=== PATIENT | female | born 1990 | race Asian ===

== ENCOUNTER 2024-08-05 21:07 | Emergency (ER) | payer OTHER ==
[2024-08-05 22:39] LABS: #Basophils Less than 0.03 10x3/uL (0.0-0.2); #Eosinophils Less than 0.03 10x3/uL (0.0-0.5); #Monocytes 0.32 10x3/uL (0.0-1.1); #Neutrophils 8.39 10x3/uL (1.5-8.4); %Lymphocytes 14.4 % (18.0-47.0); %Monocytes 3.1 % (0.0-10.0); %Neutrophils 82.2 % (40.0-75.0); Hematocrit 35.8 % (34.9-44.5); Hemoglobin 12.3 g/dL (12.0-15.5); Mean Corpuscular HGB CONC 34.4 g/dL (32.0-36.0); Mean Corpuscular Volume 81.5 fL (81.6-98.3); Mean Platelet Volume 10.2 fL (7.4-10.4); Platelet Count 304 10x3/uL (150-450); RBC Distribution Width 13.2 % (11.5-14.5); Red Blood Cell (RBC) Count 4.39 10x6/uL (3.90-5.03); White Blood Cell (WBC) Count 10.21 10x3/uL (3.5-10.5)
[2024-08-05 22:50] LABS: Pregs Control Background? CLEAR/WHITE (CLR/WHITE); Pregs Control Bar Appear? YES (CONTROL BAR)
[2024-08-05 22:54] LABS: BHCG - Serum Negative (NEGATIVE)
[2024-08-05 22:59] LABS: ALT (SGPT) Less than 7 U/L (Less than 34); AST (SGOT) 16 U/L (11-34); Albumin 4.3 g/dL (3.1-4.5); Alkaline Phosphatase 27 U/L (40-110); Anion Gap 16 mmol/L (10-20); BUN (Urea Nitrogen) 14 mg/dL (7.0-18.7); Bilirubin, Total 1.2 mg/dL (0.3-1.2); Calc. Creatinine Clearance 0 mL/min (70-130); Calcium 8.7 mg/dL (7.8-10.44); Carbon Dioxide 21 mmol/L (22-29); Chloride 106 mmol/L (98-107); Estimated GFR 122; Globulin 2.8 g/dL (2.4-3.5); Glucose 141 mg/dL (70-105); Lipase 4 U/L (8-78); Potassium 3.2 mmol/L (3.5-5.1); Protein, Total 7.1 g/dL (6.0-8.3); Sodium 140 mmol/L (136-145)
[2024-08-05] MEDS ORDERED: methylPREDNISolone Sod Succ/PF 125 MG/2 ML VIAL ONE (23:54)
[2024-08-05] MEDS ORDERED: Famotidine/PF 20 mg/2ml Vial ONE (23:55)
[2024-08-05] MEDS ORDERED: diphenhydrAMINE 50 MG/ML VIAL ONE (23:55)
== END 2024-08-06 01:18 | disposition home or self-care (01) ==
LOC: CSHERS 21:07
DX: L50.9 Urticaria, unspecified (principal); T78.2XXA Anaphylactic shock, unspecified, initial encounter; K29.00 Acute gastritis without bleeding
CPT/HCPCS: 36415; 80053; 83690; 84703; 85025; 96372; 96374; 96375; 99283; J0171; J1200; J2919; J7512